=== PATIENT | female | born 1955 | race Caucasian/White ===

== ENCOUNTER 2020-09-28 10:58 | Emergency (ER) | payer OTHER, SELFPAY ==
[2020-09-28 11:28] VITALS: BP 169/83; PULSE 98; RESP 18; TEMP 36.9; O2SAT 98
--- NOTE | 2020-09-28 11:30 | ED.GENADULT ---
HPI - General Adult General Chief complaint: Extremity Injury, Lower Stated complaint: Hip Pain Time Seen by Provider: 09/28/20 11:30 History of Present Illness HPI narrative: 65-year-old female presents to [facility] with complaints of right hip pain. Patient reports that she had fallen a week ago but landed on her left hip. States that for the last couple of days has had pain in the right hip. Walks with a normal gait. No midline tenderness. No back pain. No loss retention of bowel or bladder. Denies hitting head. No loss of consciousness. No chest pain or shortness of breath. No abdominal pain. Reports that since she had blood work to do for her doctor that she would stop in and get her hip looked at. Related Data Home Medications Medication Instructions Recorded Confirmed buspirone 10 mg PO DAILY 09/28/20 09/28/20 diazepam 5 mg PO DAILY 09/28/20 09/28/20 fluoxetine 20 mg PO DAILY 09/28/20 09/28/20 fluoxetine 40 mg PO DAILY 09/28/20 09/28/20 levothyroxine [Synthroid] 125 mcg PO DAILY 09/28/20 09/28/20 trazodone 50 mg PO DAILY 09/28/20 09/28/20 Allergies Allergy/AdvReac Type Severity Reaction Status Date / Time No Known Allergies Verified 09/28/20 11:01 Review of Systems Review of Systems: Narrative: CONSTITUTIONAL: Denies fever, chills, or sweats. EYES: Denies visual changes CARDIOVASCULAR: Denies chest pain, palpitations, or edema. RESPIRATORY: Denies cough or dyspnea. GASTROINTESTINAL: Denies abdominal pain, nausea, vomiting, or diarrhea. GENITOURINARY: Denies dysuria or hematuria. SKIN: Denies rash or itching. MUSCULOSKELETAL: Denies back pain, or myalgia. Positive for right hip pain. NEUROLOGIC: Denies headache, numbness, or weakness. PSYCHIATRIC: Denies anxiety or depression. All other systems reviewed are negative, except as documented in HPI. PMFSH Comments At the time of my signature, I reviewed and agree with the nursing past medical, surgical, social, and family history. There is no relevant family history pertinent to the patient complaint. Exam Narrative: Exam Narrative: GENERAL: This is a well-nourished, well-developed patient, in no apparent distress. HEAD: normocephalic, atraumatic. EYES: PERRL. Sclera clear/white. Vision is grossly intact. NECK: Neck supple, non-tender without lymphadenopathy, masses or thyromegaly. CARDIOVASCULAR: Regular rate and rhythm without murmurs, gallops, or rubs. RESPIRATORY: Clear to auscultation. Breath sounds equal bilaterally. No wheezes, rales, or rhonchi. GASTROINTESTINAL: Abdomen soft, non-tender, nondistended. Bowel sounds are active. No hepato-splenomegaly, or palpable masses. No guarding. SKIN: warm, intact with no suspicious lesions or rash, good texture and turgor. NEURO: awake, alert, and oriented to person, place and time. There were no obvious focal neurologic abnormalities. EXTREMITIES: No clubbing, cyanosis, or edema. No joint effusion, or edema noted. Right lateral hip pain BACK: Nontender without deformity or crepitance. No flank tenderness. Course Vital Signs Vital signs: Vital Signs Temperature 98.4 F 09/28/20 11:28 Pulse Rate 98 09/28/20 11:28 Respiratory Rate 18 09/28/20 11:28 Blood Pressure 169/83 H 09/28/20 11:28 Pulse Oximetry 98 09/28/20 11:28 Temperature 98.4 F 09/28/20 11:28 Pulse Rate 98 09/28/20 11:28 Respiratory Rate 18 09/28/20 11:28 Blood Pressure 169/83 H 09/28/20 11:28 Pulse Oximetry 98 09/28/20 11:28 Reviewed. Patient has a history of hypertension and has a follow-up already with her primary care provider on Thursday. Medical Decision Making Differential Diagnosis Differential Diagnosis: Hip fracture, hip strain, sciatica, lumbar radiculopathy Vital Signs Vital Signs: Vital Signs Temperature 98.4 F 09/28/20 11:28 Pulse Rate 98 09/28/20 11:28 Respiratory Rate 18 09/28/20 11:28 Blood Pressure 169/83 H 09/28/20 11:28 Pulse Oximetry 98 09/28/20 11:28 Temper
== END 2020-09-28 11:44 | disposition home or self-care (01) ==
PROVIDERS: Emergency Provider Nurse Practitioner
DX: M25.551 Pain in right hip (principal); E89.0 Postprocedural hypothyroidism
CPT/HCPCS: 99213; G0463

== ENCOUNTER → 2021-08-07 14:51 | Outpatient (CLI) | payer OTHER, SELFPAY ==
--- NOTE | ~2021-08-07 | XR_ITS ---
EXAMINATION: XR lumbar spine 2-3V EXAM DATE: 08/07/2021 15:23 INDICATION: Lumbar spine pain. TECHNIQUE: Lumber spine frontal, lateral, lateral L5-S1 projections for interpretation. There is no prior study for comparison. FINDINGS: Moderate loss of the L4-5 disc height. Mild loss of the L1 S2 and L2-3 disc height. Modera te lower lumbar facet arthropathy. The vertebral bodies are aligned in the AP dimension. Paraspinal s oft tissue is unremarkable. There are cholecystectomy clips. Mild lumbar levoscoliosis. Sacrum, sacro iliac joints, sacral arcuate lines are intact. IMPRESSION: Moderate lower lumbar facet arthropathy and L4-5 disc disease. Reviewed, dictated and finalized at location A. [employer]
== END ==
PROVIDERS: Visit Provider Chiropractor
DX: M47.816 Spondylosis without myelopathy or radiculopathy, lumbar region (principal); M41.9 Scoliosis, unspecified
CPT/HCPCS: 72100